=== PATIENT | female | born 1930 | race Caucasian/White ===

== ENCOUNTER → 2017-09-25 | Outpatient (CLI) | payer OTHER ==
[~2017-09-25] MED LIST: ANTACID PO; APAP/HYDROCODON1 T13 PO; BAYER ASPIRIN R81 MG PO; COL100 PO; ENALAPRIL5 M1 PO; LEVOTHYROXINE0.05 M2 PO; LORATADINE10 MG PO; LOVAZA1 G1 PO; MEDROL4 MG PO; MULTI-VITAMINS1 TAB PO; NAP500 PO; NAPROXEN500 MG PO
== END | disposition home or self-care (01) ==
LOC: RD 11:54
DX: T17.908A Unspecified foreign body in respiratory tract, part unspecified causing other injury, initial encounter (principal); R05 Cough

== ENCOUNTER 2017-10-13 11:06 | Emergency (ER) | payer OTHER ==
[~2017-10-13] VITALS: Ht 152.4 cm; Wt 70.8 kg
[2017-10-13 11:35] VITALS: Ht 152.4 cm; Wt 70.8 kg
[2017-10-13 12:56] VITALS: BP 162/72
== END 2017-10-13 14:45 | disposition home or self-care (01) ==
LOC: ED 11:06
DX: S82.001A Unspecified fracture of right patella, initial encounter for closed fracture (principal); W18.30XA Fall on same level, unspecified, initial encounter; Y93.89 Activity, other specified; Y92.89 Other specified places as the place of occurrence of the external cause; Y99.8 Other external cause status; I10 Essential (primary) hypertension; E78.00 Pure hypercholesterolemia, unspecified

== ENCOUNTER 2017-10-16 07:53 | Emergency (ER) | payer OTHER ==
[~2017-10-16] VITALS: Ht 157.5 cm; Wt 75.3 kg
[2017-10-16 08:08] VITALS: Ht 157.5 cm; Wt 75.3 kg
[2017-10-16 08:54] LABS: BASOPHIL % 0.6 % (0-2); PLATELET COUNT 183 x10^3mcL (130-400); RED CELL DISTRIBUTION WIDTH 13.4 % (11.5-14.5)
[2017-10-16 09:03] LABS: CALCIUM 8.4 mg/dL (8.5-10.1); CARBON DIOXIDE 28.9 mmol/L (21-32); CHLORIDE SERUM 109 mmol/L (98-107); CREATININE SERUM 0.9 mg/dL (0.6-1.0); GLUCOSE SERUM 117 mg/dL (74-106); POTASSIUM SERUM 4.2 mmol/L (3.5-5.1); SODIUM SERUM 146 mmol/L (136-145)
[2017-10-16 09:07] LABS: ALKALINE PHOSPHATASE 65 U/L (46-116); ALT/SGPT 33 U/L (14-59); AST/SGOT 33 U/L (15-37); BILIRUBIN TOTAL 0.28 mg/dL (0.20-1.00); TOTAL PROTEIN, SERUM 6.4 g/dL (6.4-8.2)
[2017-10-16 09:16] LABS: ALBUMIN 2.9 g/dL (3.4-5.0)
[2017-10-16 10:26] VITALS: BP 146/66
== END 2017-10-16 10:26 | disposition home or self-care (01) ==
LOC: ED 07:53
PROVIDERS: Emergency Medicine
DX: R53.1 Weakness (principal); M25.561 Pain in right knee; I10 Essential (primary) hypertension
CPT/HCPCS: 36415; Q0092

== ENCOUNTER → 2017-12-18 | Outpatient (CLI) | payer OTHER | END | disposition home or self-care (01) | LOC: RD 10:52 | DX: S82.001D Unspecified fracture of right patella, subsequent encounter for closed fracture with routine healing (principal); X58.XXXD Exposure to other specified factors, subsequent encounter ==

== ENCOUNTER 2018-03-08 18:44 | Emergency (ER) | payer OTHER ==
[~2018-03-08] VITALS: Ht 154.9 cm; Wt 68.6 kg
[2018-03-08 19:02] VITALS: Ht 154.9 cm; Wt 68.6 kg
[2018-03-08 21:45] VITALS: BP 140/64
== END 2018-03-08 21:45 | disposition home or self-care (01) ==
LOC: ED 18:44
DX: S00.33XA Contusion of nose, initial encounter (principal); S80.02XA Contusion of left knee, initial encounter; S80.01XA Contusion of right knee, initial encounter; S09.8XXA Other specified injuries of head, initial encounter; I10 Essential (primary) hypertension; W01.0XXA Fall on same level from slipping, tripping and stumbling without subsequent striking against object, initial encounter; Y93.89 Activity, other specified; Y92.89 Other specified places as the place of occurrence of the external cause; Y99.8 Other external cause status